=== PATIENT | female | born 1970 | race Caucasian/White ===

== ENCOUNTER 2016-08-05 11:12 | Emergency (ER) | payer MEDICAID, OTHER ==
[~2016-08-05] VITALS: Wt 85.9 kg
--- NOTE | 2016-08-05 12:20 | ERD ---
ER Documentation Chief Complaint Date/Time DATE: 08/05/16 TIME: 12:16 Chief Complaint ABSCESS TO L. BUTTOCK HPI This patient is a 45-year-old female with no significant medical history presenting to the emergency department for abscess to her left buttock. She states she has had this abscess for approximately 3 weeks and it was drained 1 week ago at [facility] emergency department and no antibiotics were given. The patient returns today with 9 out of 10 pain, exacerbated while sitting. She has taken no medications for pain relief. She denies any drainage, fevers, chills, or other symptoms at this time. ROS All systems reviewed and are negative except as per history of present illness. FmHx Noncontributory for chief complaint Physical Exam Vitals Vital Signs Date Time Temp Pulse Resp B/P Pulse Ox O2 Delivery O2 Flow Rate FiO2 08/05/16 11:31 98.8 71 20 126/70 97 Physical Exam INITIAL VITAL SIGNS: Reviewed by me. GENERAL: Alert and interactive. No acute distress. HEAD: Head is normocephalic and atraumatic. EYES: EOMI. No scleral icterus. No conjunctival injection. ENT: Moist mucosa. NECK: Supple. Full range of motion. RESPIRATORY: Normal respiratory effort. Clear breath sounds bilaterally. No wheezing, rales, or rhonchi. CV: Regular rate and rhythm. Normal S1 S2. No S3 or S4. No murmurs. ABDOMEN: Soft, non-distended, non-tender. No guarding. No rebound. No masses. EXTREMITIES: No deformity. SKIN: There is a slightly erythematous fluctuant abscess to the left buttock without active bleeding or drainage. NEUROLOGIC: Alert and oriented x 4. Speech is normal. Moves all extremities equally. No motor or sensory deficits noted. Results 24 hrs Current Medications Medications (Trade) Dose Ordered Sig/Lucio Route PRN Reason Start Time Stop Time Status Last Admin Dose Admin Acetaminophen/ Hydrocodone Bitart (Dunn (5/325)) 1 tab ONCE ONCE PO 08/05/16 12:30 08/05/16 12:31 DC 08/05/16 12:47 Ceftriaxone Sodium (Rocephin) 1 gm ONCE ONCE IM 08/05/16 12:30 08/05/16 12:31 DC 08/05/16 12:47 Lidocaine (Xylocaine 1% (Mdv) 20 ml) 20 ml ONCE ONCE SC 08/05/16 13:00 08/05/16 13:01 DC 08/05/16 12:47 Procedures/MDM Abscess Incision and Drainage with irrigation by me: Location: Left buttock Anesthesia: Local 1% Lidocaine Technique: Irrigated. Disrupted loculations w/ instrumentation Packin/2 inch iodoform gauze. Complications: Neurovascularly intact post procedure 48 hour wound check. Scar minimization instructions given. Patient's skin symptoms have stabilized while they have been evaluated in the department and are appropriate for outpatient care and work up. Exam and w/u not consistent w/ sepsis, deep space infection, or foreign body. MDM: 45-year-old female with no significant medical history presenting to the emergency department for for abscess to the left buttock for 3 weeks. The abscess was drained in the department and the patient tolerated the procedure well the patient was given medication for Dunn p.o. for acute pain relief and an IM 1 g Rocephin for infection prophylaxis. The patient will be given a prescription for cephalexin to be taken for 7 days. The patient is to return in 48 hours for wound recheck and repacking. The patient's questions and concerns have been addressed and she agrees with diagnosis and discharge instructions. Departure Diagnosis: Primary Impression: Abscess Condition: Stable Patient Instructions: Abscess, Incision And Drainage Additional Instructions: Follow-up with your primary care physician within 1 week. Return to the emergency department immediately should you have any new or worsening symptoms, uncontrolled fevers, or other unexplained symptoms. Take all medications as directed. TK LINN PA-C Aug 05, 2016 12:20
[2016-08-05] MEDS ORDERED: CEFTRIAXONE 1 GM INJ IM ONE (12:30)
[2016-08-05] MEDS ORDERED: HYDROCODONE/APAP (5/325) TAB PO ONE (12:30)
[2016-08-05] MEDS ORDERED: LIDOCAINE 1% (MDV) 20 ML INJ SC ONE (13:00)
[2016-08-05] MEDS ORDERED: CEPH-443 PO (13:42)
== END 2016-08-05 13:51 | disposition home or self-care (01) ==
LOC: FTE 11:12
DX: L02.31 Cutaneous abscess of buttock (principal)
CPT/HCPCS: 10061; 96372; J0696; Z7502; Z7610

== ENCOUNTER 2016-08-07 11:06 | Emergency (ER) | payer MEDICAID ==
[~2016-08-07] VITALS: Ht 172.7 cm; Wt 106.0 kg
[~2016-08-07 11:06] MED LIST: CEPH-443 PO
[2016-08-07 11:09] VITALS: Ht 172.7 cm; Wt 106.0 kg
[2016-08-07] MEDS ORDERED: CEFTRIAXONE 1 GM INJ IM ONE (13:30)
--- NOTE | 2016-08-07 13:38 | ERD ---
ER Documentation Chief Complaint Date/Time DATE: 08/07/16 TIME: 13:34 Chief Complaint COUGH AND WOUND RECEHCK ON ABCESS HPI This patient is a 45-year-old female with history of abscess which is just drained 2 days ago and packed presenting to the emergency department today for recheck of her abscess as well as cough which is been ongoing for 2 weeks. She also reports chest tightness only while walking but then resolves when she rests. She denies any shortness of breath at rest, fevers, chills, urinary symptoms, nausea, vomiting, diarrhea, or other symptoms at this time. ROS All systems reviewed and are negative except as per history of present illness. Medications Home Meds Active Scripts Benzonatate* (Benzonatate*) 200 Mg Capsule, 200 MG PO TID Y for COUGH, #15 CAP Prov:TK LINN PA-C 08/07/16 Cephalexin* (Keflex*) 500 Mg Capsule, 500 MG PO TID for 7 Days, #21 CAP Prov:TK LINN PA-C 08/05/16 PMhx/Soc Medical and Surgical Hx: pt denies Medical Hx, pt denies Surgical Hx Hx Alcohol Use: No Hx Substance Use: No Hx Tobacco Use: No Smoking Status: Never smoker FmHx Noncontributory for chief complaint Physical Exam Vitals Vital Signs Date Time Temp Pulse Resp B/P Pulse Ox O2 Delivery O2 Flow Rate FiO2 08/07/16 11:09 98.1 81 18 140/67 98 Physical Exam INITIAL VITAL SIGNS: Reviewed by me. GENERAL: Alert and interactive. No acute distress. HEAD: Head is normocephalic and atraumatic. EYES: EOMI. No scleral icterus. No conjunctival injection. ENT: Moist mucosa. NECK: Supple. Full range of motion. RESPIRATORY: Normal respiratory effort. Clear breath sounds bilaterally. No wheezing, rales, or rhonchi. CV: Regular rate and rhythm. Normal S1 S2. No S3 or S4. No murmurs. ABDOMEN: Soft, non-distended, non-tender. No guarding. No rebound. No masses. EXTREMITIES: No deformity. SKIN: Examination of the left buttock region reveals a well-healing abscess. It appears that the packing fell out and the wound has closed. There are no areas of fluctuance. There is a small area of induration of the left buttock but no erythema or active discharge is present. NEUROLOGIC: Alert and oriented x 4. Speech is normal. Moves all extremities equally. No motor or sensory deficits noted. Results 24 hrs Current Medications Medications (Trade) Dose Ordered Sig/Lucio Route PRN Reason Start Time Stop Time Status Last Admin Dose Admin Ceftriaxone Sodium (Rocephin) 1 gm ONCE ONCE IM 08/07/16 13:30 08/07/16 13:31 DC 08/07/16 13:54 Procedures/MDM 45-year-old female presenting to the emergency department for chest tightness on exertion as well as cough which is been ongoing for 2 weeks. She is also here for recheck of her left buttock abscess 2 days post incision and drainage in the emergency department. I have ordered an EKG and chest x-ray looking for any cardiopulmonary abnormalities or acute cardiac ischemia. EKG: Interpreted by ED physician Rate/Rhythm: Normal sinus rhythm with a rate of 68 bpm. QRS, ST, T-waves: No changes consistent w/ acute ischemia Impression: No evidence of ischemia or arrhythmia One view chest x-ray interpreted by radiologist: PROCEDURE: XR Chest. CLINICAL INDICATION: cough TECHNIQUE: Single portable view of the chest was obtained COMPARISON: None FINDINGS: The cardiomediastinal silhouette is normal in size. The lungs are clear. There is no pleural effusion or pneumothorax. No soft tissue or osseous abnormality. IMPRESSION: No acute intrathoracic abnormality. At this time I believe the patient's symptoms are due to upper respiratory infection. At this time I have ruled out any acute STEMI, bronchitis, pneumonia , and other abnormal cardiopulmonary findings. Discharge: I have discussed the lab results and diagnostic findings with the patient and answered any questions or concerns. The patient was discharged with a prescription for Tessalon Perles to take as needed for cough. The patient was advised to followup with their PMD in 1-2 days and to return to the ED if there are any new or worsening symptoms. The patient understood and agreed with treatment and plan. Departure Diagnosis: Primary Impression: Cough Additional Impression: Wound check, abscess Condition: Stable [facility]: [facility] Additional Instructions: Follow-up with your primary care physician within 1 week. Return to the emergency department immediately should you have any new or worsening symptoms, uncontrolled fevers, or other unexplained symptoms. Take all medications as directed. TK LINN PA-C Aug 07, 2016 13:38
--- NOTE | 2016-08-07 13:46 | RADRPT ---
PROCEDURE: XR Chest. CLINICAL INDICATION: cough TECHNIQUE: Single portable view of the chest was obtained COMPARISON: None FINDINGS: The cardiomediastinal silhouette is normal in size. The lungs are clear. There is no pleural effusion or pneumothorax. No soft tissue or osseous abnormality. IMPRESSION: No acute intrathoracic abnormality. RPTAT:[id number] . Harjeet Espinoza Physician Date Time Electronically viewed and signed by Physician Oliver on 08/07/2016 13:46 [email or web address]/
[2016-08-07] MEDS ORDERED: BENZ200C43 PO (13:51)
[2016-08-07 14:11] VITALS: BP 138/67; PULSE 88; RESP 16; TEMP 98.3
== END 2016-08-07 14:14 | disposition home or self-care (01) ==
LOC: FTE 11:06
DX: R05 Cough (principal); R07.89 Other chest pain; Z48.01 Encounter for change or removal of surgical wound dressing
CPT/HCPCS: 71010; 93005; J0696; 96372